=== PATIENT | male | born 1935 | race Caucasian/White ===

== ENCOUNTER 2019-04-16 08:17 | Outpatient (CLI) | payer MEDICARE, SELFPAY ==
--- NOTE | 2019-04-23 01:42 | SLEEP_ITS ---
Basic Nocturnal Polysomnogram DATE OF STUDY: 04/16/2019 REFERRING PHYSICIAN: Jake Fajardo MD. REASON FOR THIS STUDY: Obstructive sleep apnea syndrome. HISTORY: This patient is an 83-year-old man, 69 inches tall, weighing 172 pounds with a body mass index of 25.4. He is retired, has difficulty sleeping through the night. He frequently awakens from sleep feeling short of breath. He occasionally awakens at night with heartburn, belching, and coughing. He occasionally snores, but it is never loud enough that others complain about it. He occasionally has trouble sleeping with a cold. He does not gasp for breath at night. He occasionally has been told by others that he has breathing problems at night. He occasionally sweats excessively at night. He does not notice his heart pounding or beating irregularly at night. He frequently falls asleep during the day, frequently involuntarily, but never while driving. He does not have loss of muscle tone with strong emotion. He does not have daytime difficulties due to excessive sleepiness. He does not feel paralyzed on waking or falling asleep. He does not have vivid dreamlike scenes upon awakening or falling asleep and is never afraid to go to sleep. He occasionally has nightmares, occasionally remembers his dreams. He frequently has racing thoughts, feelings of sadness, depression, and anxiety. He does not have muscular tension, notice parts of his body jerking or kicking at night. He occasionally has crawly achy feelings in his legs. He does not have leg pain at night. He denies morning jaw pain or grinding his teeth. He occasionally is bothered by the pain during the day and at night, wakes up feeling stiff with sore achy muscles and spine pain. He has memory problems, fatigue, insomnia, concentration difficulties, headaches, and depression. Normal bedtime is 9 p.m., sometimes taking hours to fall asleep, typically waking 6 to 8 times during the night. He wakes at 5:30 in the morning. When he awakens at night, he may snack, read a book, or drink milk. Weekend schedule is the same. He estimates 4 to 6 hours of interrupted sleep during a typical night. He lives alone. He does take naps. A short nap is sometimes refreshing. He is drowsy in the morning for 3 hours or longer. He feels better in the evenings than the morning. MEDICAL COMORBIDITIES: 1. Thyroid disease. 2. Prostate problems. 3. Skin cancer. 4. History of severe sleep apnea, mainly central events. 5. Depression. 6. Nocturia. MEDICATIONS: 1. Tamsulosin 0.4 mg daily. 2. Levothyroxine 75 mcg daily. 3. Finasteride 1 mg daily. HABITS: Previously was a smoker. Caffeine, 1 cup a day. No alcohol. DESCRIPTION OF THE STUDY: On the [place] Sleepiness Scale, the score is 7. This was conducted as a full night basic nocturnal polysomnogram using the [employer] multiple channel system including EOG, EEG, submental EMG, EKG, nasal and oral airflow using thermistors and nasal pressure sensors, chest and abdominal belts, body position data and pulse oximetry. The study was scored using [facility] guidelines. Duration of the study was 412.4 minutes. Sleep time was 132 minutes. Sleep efficiency was 32%. Sleep latency was prolonged at 48.7 minutes. REM latency was short at 57 minutes. It was a very short few minutes of REM. There were 32 awakenings and he spent 63.7% of the study awake after sleep onset 231 minutes. Sleep architecture showed 4.3% stage I sleep, 25.3% stage II sleep, no stage III sleep, and only 6.7% stage REM. Sleep architecture was completely abnormal with a long period of wakefulness throughout most of the night. He had an episode of REM at the very end of the study. He did wake and go to the bathroom twice during the night. The apnea-hypopnea i
== END 2019-04-16 08:18 | disposition home or self-care (01) ==
LOC: ANHCSM 08:19
DX: G47.33 Obstructive sleep apnea (adult) (pediatric) (principal)
CPT/HCPCS: 95810